=== PATIENT | female | born 1980 | race Caucasian/White ===

== ENCOUNTER → 2017-06-22 | Outpatient (CLI) | payer OTHER | LOC: FIMAGING 12:05 | PROVIDERS: ATTEND Emergency Medicine | DX: R10.2 Pelvic and perineal pain (principal) ==

== ENCOUNTER → 2017-06-26 | Emergency (ER) | payer OTHER ==
--- NOTE | 2017-06-26 10:10 | EDPHY ---
H & P Time Seen by Provider: 06/26/17 10:08 HPI/ROS: Chief Complaint: Pelvic cramping HPI: 37-year-old woman who is 5 days status post miscarriage at 9 weeks gestation is presenting with worsening lower pelvic cramping and persistent vaginal spotting. Patient states that the bleeding has not been perfused. She has been having intermittent severe cramping for the last several days. No nausea or vomiting. No fevers or chills. No foul-smelling discharge. ROS: 10 point Review of Systems is negative except as noted in the HPI. PMH: Exercise-induced asthma Social History: No smoking, rare alcohol, no recreational drug use Family History: non-contributory Physical Exam: Gen: Awake, Alert, No Distress HEENT: Nose: no rhinorrhea Eyes: PERRLA, EOMI Mouth: Moist mucosa Neck: Supple, no JVD Chest: No respiratory distress Heart: Normal perfusion Abd: Soft, moderate suprapubic tenderness and left adnexal tenderness without fullness or masses, no guarding Ext: no edema, Skin: no rash Neuro: CN II-XII intact, Sensation grossly intact, Strength 5/5 in bilateral upper and lower extremities - Medical/Surgical History Hx Asthma: Yes Hx Chronic Respiratory Disease: No Hx Diabetes: No Hx Cardiac Disease: No Hx Renal Disease: No Hx Cirrhosis: No Hx Alcoholism: No Hx HIV/AIDS: No Hx Splenectomy or Spleen Trauma: No Other PMH: Exercise induced asthma Constitutional: Initial Vital Signs Temperature (C) 36.6 C 06/26/17 10:38 Heart Rate 78 06/26/17 10:38 Respiratory Rate 18 06/26/17 10:38 Blood Pressure 124/85 H 06/26/17 10:38 O2 Sat (%) 97 06/26/17 10:38 O2 Delivery Mode Room Air Allergies/Adverse Reactions: No Known Allergies Allergy (Verified 09/29/13 19:29) Home Medications: Medication Instructions Recorded levOFLOXACIN [Levaquin] 500 mg PO DAILY #7 tab 09/29/13 Medical Decision Making - Diagnostics Imaging Results: Imaging Impressions Pelvic/Renal Ultrasound 06/26/17 10:05 Impression: 1. Compared to the study 4 days ago, there is been an interval decrease in the degree of endometrial thickening, with no intrinsic endometrial hyperemia although there is some mild myometrial hyperemia and trace venous flow at the endometrial-myometrial interface. There is also some echogenic thickening of the cervix, but there is no remnant blighted ovum observed. Continued gynecologic follow-up is suggested. 2. Normal appearance of the ovaries, with no torsion. 3. Trace amount of free fluid in the pelvic cul-de-sac. Findings were discussed with Sae Lechuga MD at 11:02, on 06/26/2017. Imaging: Discussed imaging studies w/ bingo caller Radiologist ED Course/Re-evaluation: Patient had an ultrasound 4 days ago which showed heterogeneous thickening of the endometrium with no IUP consistent with hemorrhage or retained products of conception. Ultrasound here noted. No evidence of retained products. I have discussed with Lizabeth Ochoa, patient's nurse machine joiner cementer. She agrees with the plan to follow up with the patient tomorrow for repeat examination. Patient's pain is now improved after ibuprofen. Patient is deferring pelvic exam at this time. Departure - Departure Disposition: Home, Routine, Self-Care Clinical Impression: Miscarriage Condition: Good Instructions: Miscarriage (ED) Additional Instructions: Follow up with your OBGYN tomorrow. Return to the emergency depart for increasing pain, nausea, vomiting, fevers, chills, worsening vaginal bleeding, lightheadedness, fainting, or any other concerns. Referrals: Lizabeth Ochoa CNM [Certified Nurse [employer] Sifter] - As per Instructions
[2017-06-26 10:42] VITALS: BP 115/62; PULSE 78; RESP 18; TEMP 98; O2SAT 97
== END | disposition home or self-care (01) ==
LOC: CED 10:03
DX: O03.9 Complete or unspecified spontaneous abortion without complication (principal); J45.909 Unspecified asthma, uncomplicated; Z3A.09 9 weeks gestation of pregnancy
CPT/HCPCS: 76856-PO

== ENCOUNTER → 2017-10-14 | Outpatient (CLI) | payer OTHER | LOC: FIMAGING 08:23 | PROVIDERS: ATTEND Advanced Practice Midwife | DX: O09.521 Supervision of elderly multigravida, first trimester (principal); O20.8 Other hemorrhage in early pregnancy; Z3A.12 12 weeks gestation of pregnancy ==

== ENCOUNTER → 2017-12-03 | Outpatient (CLI) | payer OTHER | LOC: FIMAGING 07:56 | PROVIDERS: ATTEND Advanced Practice Midwife | DX: O09.522 Supervision of elderly multigravida, second trimester (principal); Z3A.19 19 weeks gestation of pregnancy ==

== ENCOUNTER 2018-03-23 08:37 | Observation (INO) | payer OTHER ==
[2018-03-23] MEDS ORDERED: TDAP ADULT 0.5 ML INJ (BOOSTRIX) IM ONE ×2 (09:20→09:28)
--- NOTE | 2018-03-23 23:24 | GHP ---
DATE OF ADMISSION: 03/23/2018 REASON FOR VISIT: Decreased movement. The patient is a 37-year-old 1, para 0, at 35 and half weeks gestation who complained of decreased movement over the last few days. She came in and had a reactive nonstress test. Kick counts and precautions were reviewed with the patient. The patient received the Tdap vaccine and was discharged home with kick counts and labor precautions. As previously stated, the nonstress test was reactive, category 1, appropriate for gestational age with 3 accelerations and no decelerations. /[id number]/MODL MTDD
== END 2018-03-23 09:40 | disposition home or self-care (01) ==
LOC: FLD 08:37
PROVIDERS: ADMIT Obstetrics & Gynecology; ATTEND Obstetrics & Gynecology
DX: O36.8130 Decreased fetal movements, third trimester, not applicable or unspecified (principal); Z3A.35 35 weeks gestation of pregnancy; Z23 Encounter for immunization
CPT/HCPCS: 59025; 90471; G0378

== ENCOUNTER 2018-04-11 17:23 | Inpatient (IN) | payer OTHER ==
[2018-04-11] MEDS ORDERED: IBUPROFEN 600 MG TAB PO PRN (17:41)
[2018-04-11] MEDS ORDERED: LR 1,000 ML IV PRN (17:41)
[2018-04-11] MEDS ORDERED: EPSOM SALT 454 GM TP PRN (17:41)
[2018-04-11] MEDS ORDERED: OXYTOCIN/RINGERS LACTATE 1,000 ML IV PRN (17:41)
[2018-04-11] MEDS ORDERED: LIDOCAINE 1% 300 MG/30 ML SDV SC PRN (17:41)
[2018-04-11] MEDS ORDERED: TERBUTALINE SULFATE 1 MG/ML VIAL IV PRN (17:41)
[2018-04-11] MEDS ORDERED: MISOPROSTOL 200 MCG TAB PR PRN (17:41)
[2018-04-11] MEDS ORDERED: OLIVE OIL 118 ML BTL MISC PRN (17:41)
[2018-04-11] MEDS ORDERED: ZOLPIDEM TARTRATE 5 MG TAB PO PRN (17:51)
[2018-04-11] MEDS ORDERED: DINOPROSTONE 10 MG VAG SUPP VG ONE (18:00)
[2018-04-11 18:36] LABS: PLATELET COUNT 320 10^3/uL (150-400)
--- NOTE | 2018-04-11 19:10 | PDGENHP ---
History and Physical History and Physical: Care: [facility] HPI: Pt had been seen today in the office by Lizabeth Estes CNM and Dr Angy De Leon, for a PNV and repeat SILVANA. For the last few weeks have been monitoring levels. Today it was found to be 2.7 with a reactive NST. VE in the office LT Patient is a 37 yo G 3 P 0 @ 38 weeks presenting to L & D for induction of labor for oligohydramnios. EDC: 04/25/2018 which is based on LMP: 07/19/2017 which is known and consistent with Ultrasound at 67 weeks. Her is complicated by: AMA and oligohydramnios Review of Systems: Constitutional: Denies any fever, chills, or fatigue HEENT: denies any visual changes, difficulty swallowing, hearing loss Cardiovascular: Denies any chest pain, palpitations, leg swelling Respiratory: denies any cough, wheezing, or shortness of breathe GI: Denies any nausea, vomiting, diarrhea, constipation : denies any dysuria, urgency, frequency, vaginal bleeding Musculoskeletal: denies any muscle or bone pain Skin: denies any rashes Neuro: denies any headache, seizures, lightheadedness, dizziness, or loss of consciousness Psychiatric: denies any depression, anxiety, or SI/HI thoughts HISTORY: Previous OB history: TAB 2013 and SAB 06/2017 without complication Past medical history: Colpo 2010, neg HPV; exercise induced asthma, Cold sores Past surgical history: None Social: Denies any alcohol, tobacco, or drug use. Family history: Not relevant Medications: PNV, albuterol PRN Allergies : NKDA LABS: Rh: A+ ABS: Neg Rubella: Immune HbsAg: NR HIV: NR VDRL: NR 1hr: 165; 3 hour WNL GC: Neg Chlamydia: Neg Pap: GBS: Neg BMI: (prepreg) 22.6 PHYSICAL EXAM: Constitutional: WN, A&Ox3 HEENT: normocephalic atraumatic, supple Skin: Warm, dry, intact Heart: RRR, no murmur Chest: CTA-B Abdomen: Soft, nontender, gravid SVE: LTC Extremities: No edema, negative homans sign Neuro: grossly normal Psych: normal affect assessment: FHT baseline 120 to 130 +accels, no decels, moderate variability Contractions: None Assessment: 1) 37 yo G 3 P ) with IUP@ 38 2) Oligohydramnios 3) GBS neg 4) Cat 1 FHR tracing 5) Induction of labor Plan: 1) Admit to L&D 2) Cervical placed 3) Discussed induction of labor and importance of cervical ripening prior to starting pitocin. Will reassess cervix after 12 hours. At that time if cervix not ripened enough, will attempt to place a cooks balloon if able. 4) Ambien 5 mg po for sleep as needed ordered
--- NOTE | 2018-04-12 09:53 | OBPROG ---
Labor Progress Note Assessment/Plan: Assessment: 1) Continued cervical ripening 2) Category 1 strip Plan: 04/12/18 10:09 1) Cooks catheter for next 12 hours or until contractions/cramping resolve. Will recheck cervix at this time and start pitocin as indicated. Subjective/Intrapartum Course: 04/12/18 10:07 Pt states she was crampy all night and had difficulty sleeping even with Ambien Objective: 04/11/18 18:20 Patient ABO/Rh A POSITIVE 04/11/18 18:20 VE 08/10/-3 station, softer, posterior. Attempted placement of cooks catheter using a speculum however pt had very difficult time tolerating. Nitrous was set up and then was able to visualize and place catheter. 80 ml saline in uterine balloon and 60 in vaginal placed. Still had quite a difficult time tolerating but once speculum was removed was much better able to cope. FHT baseline 130; mod cyndee; + accels; no decels - SVE Dilation (cm): 1 Effacement (%): Less than 50 Station: -3 Membranes: Intact - Contraction Pattern Assessment Current Contraction Pattern: Irregular - Procedures Non-surgical Procedures: Other (Specify) (Cooks catheter placed) Oxytocin Orders Assessment - Pre-Induction/Augmentation Assessment Gestational Age: 38 week(s) and 0 day(s) ICD10 Worksheet Patient Problems: Problems Problem Status Onset Encounter for induction of labor Acute Oligohydramnios Acute - ICD10 Problem Qualifiers (1) Oligohydramnios (2) Encounter for induction of labor
[2018-04-12] MEDS ORDERED: PHENYLEPHRINE HCL 100 MCG/ML SYR ONE ×2 (15:39→17:20)
[2018-04-12] MEDS ORDERED: BUPIVACAINE 0.25% 30 ML SDV ONE (15:39)
[2018-04-12] MEDS ORDERED: fentaNYL 2MCG/ML/BUP 0.1% RTU 100 ML BAG EP ONE (15:40)
[2018-04-12] MEDS ORDERED: PHENYLEPHRINE HCL 100 MCG/ML SYR IVP PRN (18:10)
[2018-04-12] MEDS ORDERED: LR 500 ML IV SCH (18:30)
--- NOTE | 2018-04-12 19:33 | PREANESOB ---
Obstetric Pre-Anesthesia Info - General Info Proposed Procedure: REBA : 3 Para: 0 CHIKIS: 04/25/18 Gestational Age: 38 week(s) and 0 day(s) - Info Status: Full Term - Labor Status Cervical Dilation per last OB SVE: 1 Station per last OB SVE: -3 Indications for Labor Analgesia: Pain Control Labor Epidural: Proposed Anesthesia Allergies/Adverse Reactions: Allergy/AdvReac Type Severity Reaction Status Date / Time No Known Allergies Allergy Verified 04/11/18 17:41 Home Medications: Medication Instructions Recorded levOFLOXACIN [Levaquin] 500 mg PO DAILY #7 tab 09/29/13 Hydrocodone/Acetaminophen 1 - 2 each PO Q4-6PRN PRN #10 06/26/17 [Hydrocodon-Acetaminophen 5-325] tablet Visit Medications: Generic Name Dose Route Start Last Admin Trade Name Freq PRN Reason Stop Dose Admin Ephedrine Sulfate 10 mg 04/12/18 18:10 Ephedrine Sulfate IV 10/09/18 18:09 .Q2M PRN Hypotension Oxytocin/Lactated Ringer's 1,000 mls @ 125 mls/hr 04/11/18 17:41 Pitocin 20 Units/Lr (Premix) IV PRN PRN Post bleeding Lactated Ringer's 500 mls @ 0 mls/hr 04/12/18 18:30 Lr IV 10/09/18 18:29 CONT TROY As Directed Ibuprofen 600 mg 04/11/18 17:41 Motrin PO ONCE PRN post , pain Lidocaine HCl 300 mg 04/11/18 17:41 Lidocaine Hcl 1% SC 10/08/18 17:40 ONCE PRN episiotomy Magnesium Sulfate 454 gm 04/11/18 17:41 Epsom Salt TP 10/08/18 17:40 Q1H PRN perineal discomfort Misoprostol 800 - 1,000 mcg 04/11/18 17:41 Cytotec SD ONCE PRN Vaginal Atony/Bleeding Galien Oil 118 ml 04/11/18 17:41 Sweet Oil MISC 10/08/18 17:40 ONCE PRN perineal massage Phenylephrine HCl 100 mcg 04/12/18 18:10 Neosynephrine IVP 10/09/18 18:09 .Q2M PRN Hypotension Terbutaline Sulfate 0.25 mg 04/11/18 17:41 Brethine IV 10/08/18 17:40 ONCE PRN Tachysystole Zolpidem Tartrate 5 mg 04/11/18 17:51 04/11/18 21:55 Ambien PO 10/08/18 17:50 5 mg HS PRN Administration Sleep/Insomnia Discontinued Medications Generic Name Dose Route Start Last Admin Trade Name Cecilia PRN Reason Stop Dose Admin Bupivacaine HCl Confirm 04/12/18 15:39 Sensorcaine 0.25% Sdv Administered 04/12/18 15:40 Dose 30 ml .ROUTE .STK-MED ONE Dinoprostone 10 mg 04/11/18 18:00 04/11/18 18:50 Cervidil VG 04/11/18 18:01 10 mg ONCE ONE Administration Fentanyl/Bupivacaine HCl Confirm 04/12/18 15:40 Fentanyl/Bupivacaine/Ns 2 Mcg/Ml 0.1% (Premix Administered 04/12/18 15:41 Dose 100 ml EP .STK-MED ONE Lactated Ringer's 1,000 mls @ 0 mls/hr 04/11/18 17:41 Lr IV 04/12/18 17:40 PRN PRN SEE PROTOCOL CONDITIONS Protocol Per Protocol Phenylephrine HCl Confirm 04/12/18 15:39 Neosynephrine Administered 04/12/18 15:40 Dose 1,000 mcg .ROUTE .STK-MED ONE Phenylephrine HCl Confirm 04/12/18 17:20 Neosynephrine Administered 04/12/18 17:21 Dose 1,000 mcg .ROUTE .STK-MED ONE - Vital Signs Height/Weight (Nursing): Height 175.26 cm Weight 87.362 kg Labs: 04/11/18 18:20 Patient ABO/Rh A POSITIVE 04/11/18 18:20
[2018-04-12] MEDS ORDERED: LR 500 ML IV PRN (21:41)
[2018-04-12] MEDS ORDERED: OXYTOCIN/RINGERS LACTATE 500 ML IV SCH (22:00)
[2018-04-13] MEDS ORDERED: fentaNYL 2MCG/ML/BUP 0.1% RTU 100 ML BAG EP ONE ×2 (04:47→13:40)
[2018-04-13] MEDS ORDERED: LIDOCAINE 1% 300 MG/30 ML SDV ONE (07:47)
[2018-04-13] MEDS ORDERED: OLIVE OIL 118 ML BTL ONE (07:47)
[2018-04-13] MEDS ORDERED: MISOPROSTOL 200 MCG TAB ONE (07:48)
[2018-04-13] MEDS ORDERED: OXYTOCIN 10 UNIT/ML VIAL ONE (07:48)
[2018-04-13] MEDS ORDERED: TERBUTALINE SULFATE 1 MG/ML VIAL ONE (07:48)
[2018-04-13] MEDS ORDERED: AMMONIA AROMATIC 1 EACH AMP IH ONE (07:48)
--- NOTE | 2018-04-13 14:27 | OBPROG ---
Labor Progress Note Assessment/Plan: Assessment: 1) Continued cervical ripening 2) Category 1 strip Assessment: 1)Active labor 2)category 1 to category 2 strip with decreased blood pressures. Moderate variability. Plan: 04/12/18 10:09 1) Cooks catheter for next 12 hours or until contractions/cramping resolve. Will recheck cervix at this time and start pitocin as indicated. 04/13/18 11:20 1) Request for anesthesia consult regarding ongoing issues of blood pressure drop and nausea with bolus 2) Continue monitor BP and fht's 3) Dr De Leon updated regarding status Subjective/Intrapartum Course: 04/12/18 10:07 Pt states she was crampy all night and had difficulty sleeping even with Ambien 04/13/18 1120 Bolused her epidural awhile ago and again having nausea with a decrease in blood pressure. Objective: 04/11/18 18:20 Patient ABO/Rh A POSITIVE 04/11/18 18:20 FHT baseline 140; mod cyndee; + accels; occasional late decels when blood pressures drop. R/t epidural. Recovers well with increase in blood pressure and position change. - SVE Dilation (cm): 5 Effacement (%): 90 Station: -2 Membranes: Intact - Contraction Pattern Assessment Current Contraction Pattern: Regular - Procedures Non-surgical Procedures: Other (Specify) (Cooks catheter placed) Oxytocin Orders Assessment - Pre-Induction/Augmentation Assessment Gestational Age: 38 week(s) and 0 day(s) ICD10 Worksheet Patient Problems: Problems Problem Status Onset Encounter for induction of labor Acute Oligohydramnios Acute - ICD10 Problem Qualifiers (1) Oligohydramnios (2) Encounter for induction of labor
--- NOTE | 2018-04-13 16:10 | OBPROG ---
Labor Progress Note Assessment/Plan: Assessment: 1) Continued cervical ripening 2) Category 1 strip Assessment: 04/12/2018 1930 1) Category 2 strip related to decreased blood pressures after epidural. Moderate variability throughout. Assessment: 1)Active labor 2)category 1 to category 2 strip with decreased blood pressures. Moderate variability. Plan: 04/12/18 10:09 1) Cooks catheter for next 12 hours or until contractions/cramping resolve. Will recheck cervix at this time and start pitocin as indicated. 04/12/2018 1) Dr Cross notified of strip and is available to come in leann as needed. 04/13/18 11:20 1) Request for anesthesia consult regarding ongoing issues of blood pressure drop and nausea with bolus 2) Continue monitor BP and fht's 3) Dr De Leon updated regarding status 04/13/18 16:10 Subjective/Intrapartum Course: 04/12/18 10:07 Pt states she was crampy all night and had difficulty sleeping even with Ambien 04/12/18 1930 Pt has had a very difficult time with side effects related to blood pressure drop and difficulty resolving. Anesthesia worked for a while to bring pressures up and maintain them. Feeling better now. 04/13/18 1120 Bolused her epidural awhile ago and again having nausea with a decrease in blood pressure. Objective: 04/11/18 18:20 Patient ABO/Rh A POSITIVE 04/11/18 18:20 Several prolonged decels after epidural placement and difficulty maintaining blood pressures. Moderate variability the entire time however and would recover well once blood pressure increased. - SVE Membranes: Intact - Contraction Pattern Assessment Current Contraction Pattern: Regular - Procedures Non-surgical Procedures: Other (Specify) (Cooks catheter placed) Oxytocin Orders Assessment - Pre-Induction/Augmentation Assessment Gestational Age: 38 week(s) and 0 day(s) ICD10 Worksheet Patient Problems: Problems Problem Status Onset Encounter for induction of labor Acute Oligohydramnios Acute - ICD10 Problem Qualifiers (1) Oligohydramnios (2) Encounter for induction of labor
[2018-04-13] MEDS ORDERED: HYDROCORTISONE 0.5% CREAM TP PRN (16:15)
[2018-04-13] MEDS ORDERED: SIMETHICONE 80 MG TAB CHEW PO PRN (16:15)
--- NOTE | 2018-04-13 16:15 | OBDEL ---
Info Type: Vaginal Presentation at Delivery: Vertex L&D Analgesia/Anesthesia Type: Epidural GBS+: No Intrapartum Medications: Generic Name Dose Route Start Last Admin Trade Name Freq PRN Reason Stop Dose Admin Oxytocin/Lactated Ringer's 500 mls @ 0 mls/hr 04/12/18 22:00 04/12/18 21:55 Pitocin 30 Units/Lr (Premix) IV 10/09/18 21:59 500 mls CONT TROY Administration Protocol Per Protocol Zolpidem Tartrate 5 mg 04/11/18 17:51 04/11/18 21:55 Ambien PO 10/08/18 17:50 5 mg HS PRN Administration Sleep/Insomnia Discontinued Medications Generic Name Dose Route Start Last Admin Trade Name Freq PRN Reason Stop Dose Admin Dinoprostone 10 mg 04/11/18 18:00 04/11/18 18:50 Cervidil VG 04/11/18 18:01 10 mg ONCE ONE Administration - Hospital Course Intrapartum: 04/12/18 10:07 Pt states she was crampy all night and had difficulty sleeping even with Ambien 04/12/18 1930 Pt has had a very difficult time with side effects related to blood pressure drop and difficulty resolving. Anesthesia worked for a while to bring pressures up and maintain them. Feeling better now. 04/13/18 1120 Bolused her epidural awhile ago and again having nausea with a decrease in blood pressure. Indications for Delivery: Oligohydramnios Vaginal Delivery - Delivery Provider Delivery Physician/CNM: Diana Zee - Labor and Delivery Onset of Contractions Date: 04/13/18 Onset of Contractions Time: 11:20 Onset of Contractions Type: Induced Rupture of Membranes Date: 04/13/18 Rupture of Membranes Time: 13:47 Rupture of Membranes Type: Artificial Amniotic Fluid Color: Clear Dilation Complete Date: 04/13/18 Dilation Complete Time: 14:15 Placenta Delivery Date: 04/13/18 Placenta Delivery Time: 15:32 Total Hours of Labor: 4 Non-surgical Procedures: Amniotomy, Other (Specify) (Cooks catheter placed) Laceration: 1st Degree (vaginal; well approximated and nonbleeding) Vaginal Sponge Count Correct: Yes Vaginal Needle Count Correct: Yes Vaginal Sweep Performed: Yes EBL: 100 Delivery Events: Nuchal Cord (around neck x 1 and around body) - Medications Labor Augmentation/Induction Methods Used: Pitocin, [place] Bulb, Cervadil Labor Augmentation/Induction Indication: Other (Specify) (oligohydramnios) [place] Data CHIKIS: 04/25/18 Gestational Age: 38 week(s) and 2 day(s) ICD10 Worksheet Patient Problems: Problems Problem Status Onset Encounter for induction of labor Acute Oligohydramnios Acute - ICD10 Problem Qualifiers (1) Oligohydramnios (2) Encounter for induction of labor
[2018-04-13] MEDS: DOCUSATE SODIUM 100 MG CAP PO PRN (20:06)
[2018-04-13] MEDS: ACETAMINOPHEN 325 MG TAB PO SCH ×2 (20:37→21:42)
[2018-04-13] MEDS: IBUPROFEN 600 MG TAB PO SCH (21:42)
[2018-04-14] MEDS: IBUPROFEN 600 MG TAB PO SCH ×4 (03:37→22:34)
[2018-04-14] MEDS: ACETAMINOPHEN 325 MG TAB PO SCH ×4 (03:37→22:52)
--- NOTE | 2018-04-14 10:03 | OBPP ---
Progress Note Assessment/Plan: Assessment: [id number] s/p PPD#1 Plan: routine PP care ambulate/hydrate support PRN anticipate d/c home tomorrow 04/14/18 10:00 Subjective/ Course: 04/14/18 10:01 Pt doing well. She denies any pain or heavy bleeding. She does report moderate cramps with . baby is latching and eating well. She was able to rest/sleep couple hours last night. She is ambulating and voiding without difficulty. BAM Benitez, at BS and supportive. Objective: 04/11/18 18:20 Patient ABO/Rh A POSITIVE 04/11/18 18:20 Temp Pulse Resp BP Pulse Ox 36.2 C 80 16 119/72 96 04/13/18 20:00 04/13/18 20:00 04/13/18 20:00 04/13/18 20:00 04/13/18 20:00 Uterine Position/Fundal Height: Umbilicus -1, Midline Uterine Tone: Firm Physical Exam - Physical Exam General Appearance: WD/WN, alert, no apparent distress Abdomen: soft Extremities: non-tender Skin: normal color, warm/dry Neuro/Psych: alert, normal mood/affect, oriented x 3
[2018-04-14] MEDS: DOCUSATE SODIUM 100 MG CAP PO PRN (10:14)
[2018-04-15] MEDS: IBUPROFEN 600 MG TAB PO SCH ×4 (05:22→18:35)
[2018-04-15] MEDS: ACETAMINOPHEN 325 MG TAB PO SCH ×3 (05:24→17:38)
[2018-04-15 09:16] VITALS: BP 121/84
--- NOTE | 2018-04-15 11:15 | OBPP ---
Progress Note Assessment/Plan: Assessment: Plan: Subjective/ Course: 04/14/18 10:01 Pt doing well. She denies any pain or heavy bleeding. She does report moderate cramps with . baby is latching and eating well. She was able to rest/sleep couple hours last night. She is ambulating and voiding without difficulty. BAM Benitez, at BS and supportive. 04/15/18 11:14 Breast feeding well. Ambulating, voiding without difficulty. Plan d/c home today. Objective: 04/11/18 18:20 Patient ABO/Rh A POSITIVE 04/11/18 18:20 Temp Pulse Resp BP Pulse Ox 36.3 C 78 16 121/84 H 94 04/15/18 08:00 04/15/18 08:00 04/15/18 08:00 04/15/18 08:00 04/15/18 08:00 VSS Uterine Position/Fundal Height: At Umbilicus Uterine Tone: Firm
--- NOTE | 2018-04-15 11:16 | OBGCSDC ---
General Delivery Information - General Info : 3 Para: 1 Abortions: 2 Type: Vaginal L&D Analgesia/Anesthesia Type: Epidural Admission Date: 04/11/18 Labs: Patient ABO/Rh A POSITIVE 04/11/18 18:20 Hct 34.4 % (38.0-47.0) L 04/11/18 18:20 - Hospital Course Intrapartum: 04/12/18 10:07 Pt states she was crampy all night and had difficulty sleeping even with Ambien 04/12/18 1930 Pt has had a very difficult time with side effects related to blood pressure drop and difficulty resolving. Anesthesia worked for a while to bring pressures up and maintain them. Feeling better now. 04/13/18 1120 Bolused her epidural awhile ago and again having nausea with a decrease in blood pressure. : 04/14/18 10:01 Pt doing well. She denies any pain or heavy bleeding. She does report moderate cramps with . baby is latching and eating well. She was able to rest/sleep couple hours last night. She is ambulating and voiding without difficulty. BAM Benitez, at BS and supportive. 04/15/18 11:14 Breast feeding well. Ambulating, voiding without difficulty. Plan d/c home today. Vaginal - Delivery Provider Delivery Physician/CNM: Diana Zee - Diagnosis Labor: Induced Rupture of Membranes Type: Artificial Amniotic Fluid Color: Clear Laceration: 1st Degree (vaginal; well approximated and nonbleeding) Delivery Events: Nuchal Cord (around neck x 1 and around body) - Procedures Non-surgical Procedures: Amniotomy, Other (Specify) (Cooks catheter placed) - Delivery Non-surgical Procedures: Amniotomy, Other (Specify) (Cooks catheter placed) EBL: 100 Data CHIKIS: 04/25/18 Gestational Age: 38 week(s) and 4 day(s) Discharge Information - Discharge Information Prescriptions: Ibuprofen [Motrin (*)] 600 mg PO Q6H #30 tab Condition: Good Instruction/Follow Up: See Instruction Sheet
[2018-04-15] MEDS: DOCUSATE SODIUM 100 MG CAP PO PRN (12:35)
--- NOTE | 2018-04-15 16:00 | POSTANESTH ---
Post Anesthetic Evaluation Cardiovascular Status: Normal, Stable Respiratory Status: Normal, Stable Level of Consciousness/Mental Status: Can Participate in Eval Pain Control: Adequate, Prn Tx Ordered Nausea/Vomiting Control: Adequate, Prn Tx Ordered Complications Possibly Related to Anesthesia: None Noted
== END 2018-04-15 19:00 | disposition home or self-care (01) | DRG 775 ==
LOC: FLD 17:23 → FOB 04-13 19:17
PROVIDERS: ADMIT Advanced Practice Midwife; ATTEND Advanced Practice Midwife
PROC: 3E033VJ Introduction of Other Hormone into Peripheral Vein, Percutaneous Approach (ICD-10-PCS; 2018-04-12)
PROC: 0U7C7ZZ Dilation of Cervix, Via Natural or Artificial Opening (ICD-10-PCS; 2018-04-12)
PROC: 10E0XZZ Delivery of Products of Conception, External Approach (ICD-10-PCS; principal; 2018-04-13)
PROC: 10907ZC Drainage of Amniotic Fluid, Therapeutic from Products of Conception, Via Natural or Artificial Opening (ICD-10-PCS; principal; 2018-04-13)
DX: O41.03X0 Oligohydramnios, third trimester, not applicable or unspecified (principal); Z37.0 Single live birth; Z3A.38 38 weeks gestation of pregnancy; O69.81X0 Labor and delivery complicated by cord around neck, without compression, not applicable or unspecified
CPT/HCPCS: J2370; J2590; J3105